=== PATIENT | female | born 1950 | race Caucasian/White ===

== ENCOUNTER 2021-06-22 12:06 | Emergency (ER) | payer MEDICARE | END 2021-06-22 13:46 | disposition left against medical advice (07) | LOC: MW.ED 12:06 | DX: K59.00 Constipation, unspecified (principal); Z53.21 Procedure and treatment not carried out due to patient leaving prior to being seen by health care provider ==

== ENCOUNTER 2023-05-06 15:42 | Emergency (ER) | payer MEDICARE ==
[2023-05-06] MEDS ORDERED: Acetaminophen 500 MG Tab PO ONE (16:00)
[2023-05-06] MEDS ORDERED: Ibuprofen 400 MG Tab PO STA (16:01)
[2023-05-06] MEDS ORDERED: Sodium Chloride 0.9% 2.5 ML Syringe FLUSH PRN (16:45)
[2023-05-06] MEDS ORDERED: Sodium Chloride 0.9% 10 ML Syringe FLUSH PRN (16:45)
[2023-05-06 17:17] LABS: BASOPHILS PERCENT AUTO 0.2 % (0.0-1.5); EOSINOPHILS PERCENT AUTO 0.1 % (0.0-7.0); HEMATOCRIT 39.4 % (36.0-46.0); HEMOGLOBIN 13.4 g/dL (12.0-16.0); LYMPHOCYTES ABSOLUTE AUTO 1.2 K/uL (0.6-2.4); LYMPHOCYTES PERCENT AUTO 14.7 % (16.0-40.0); MEAN CORPUSCULAR HEMOGLOBIN 30.9 pg (27.0-32.0); MEAN CORPUSCULAR VOLUME 90.8 fL (80.0-98.0); MONOCYTES ABSOLUTE AUTO 1.4 K/uL (0.0-0.8); MONOCYTES PERCENT AUTO 17.3 % (0.0-15.0); NEUTROPHILS ABSOLUTE AUTO 5.5 K/uL (1.4-5.7); NEUTROPHILS PERCENT AUTO 67.7 % (48.0-80.0); NRBC ABSOLUTE 0 K/uL; PLATELET COUNT,PLT 279 K/uL (150-400); RED BLOOD CELL COUNT 4.34 M/uL (4.30-5.90); WHITE BLOOD CELL COUNT,WBC 8.09 K/uL (4.0-11.0)
[2023-05-06 17:34] LABS: POTASSIUM,K 4.1 mmol/L (3.5-5.1)
[2023-05-06 17:52] LABS: A/G RATIO 0.6 (0.9-1.6); ALBUMIN 3.2 g/dL (3.4-5.0); BILIRUBIN TOTAL 0.5 mg/dL (0.2-1.0); CALCIUM 9.4 mg/dL (8.5-10.1); CARBON DIOXIDE,CO2 20.8 mmol/L (21.0-32.0); CREATININE 0.8 mg/dL (0.6-1.0); EST CRCL DRUG DOSING (CG) 52.58 mL/min; PROTEIN TOTAL,TP 8.2 g/dL (6.4-8.2)
[2023-05-06 18:07] LABS: LIPASE 50 U/L (73-393)
== END 2023-05-06 20:29 | disposition home or self-care (01) ==
LOC: MW.ED 15:42
DX: M25.511 Pain in right shoulder (principal); M54.6 Pain in thoracic spine; I10 Essential (primary) hypertension; F17.210 Nicotine dependence, cigarettes, uncomplicated; Z79.899 Other long term (current) drug therapy
CPT/HCPCS: 36415; 71045; 80053; 83690; 84484; 85025; 93005; 99284; A9270; J3490; 93010; 99283

== ENCOUNTER 2025-09-26 15:37 | Emergency (ER) | payer MEDICARE, MEDICAID | END 2025-09-26 17:15 | disposition home or self-care (01) | LOC: MW.ED 15:37 | DX: S46.811A Strain of other muscles, fascia and tendons at shoulder and upper arm level, right arm, initial encounter (principal); Z79.899 Other long term (current) drug therapy; X58.XXXA Exposure to other specified factors, initial encounter | CPT/HCPCS: 99283 ==